=== PATIENT | female | born 1990 | race Caucasian/White ===

== ENCOUNTER 2017-08-24 07:34 | Emergency (ER) | payer MEDICAID ==
[2017-08-24 08:11] LABS: BASOPHILS 0.1 % (0-2); EOSINOPHILS 0.1 % (0-7); HEMATOCRIT 44.8 % (36.0-48.0); HEMOGLOBIN 15.4 g/dL (12-16); IMMATURE GRANULOCYTES 0.1 % (0-5); LYMPHOCYTES 13.4 % (15-50); MCH 28.8 pg (26.0-34.0); MCHC 34.4 g/dL (31.0-37.0); MCV 83.9 fL (80.0-100.0); MEAN PLATELET VOLUME 11.8 fL (7.4-10.4); NEUTROPHILS 82.3 % (40-80); PLATELET COUNT 274 10x3/uL (130-400); RBC 5.34 10x6/uL (4.00-5.40); RDW 13.8 % (11.5-14.5); WBC 7.8 10x3/uL (4.8-10.8)
[2017-08-24 08:14] LABS: AMORPHOUS SEDIMENT <1+ /lpf (NONE SEEN); APPEARANCE CLEAR (CLEAR); BACTERIA MODERATE /hpf (NONE SEEN); BILIRUBIN NEGATIVE (NEGATIVE); COLOR YELLOW (YELLOW); GLUCOSE NEGATIVE (NEGATIVE); KETONE SMALL mg/dL (NEGATIVE); MUCUS <1+ /lpf (NONE SEEN); NITRITE NEGATIVE (NEGATIVE); PROTEIN NEGATIVE (NEGATIVE); RED CELLS - URINE 0-5 /hpf (0-5); UROBILINOGEN NORMAL (NORMAL); WHITE CELLS - URINE 0-5 /hpf (0-5)
[2017-08-24 08:18] LABS: ALBUMIN 3.7 g/dL (3.4-5.0); ALKALINE PHOSPHATASE 79 U/L (46-116); ALT (SGPT) 25 U/L (10-68); BILIRUBIN - TOTAL 0.45 mg/dL (0.2-1.3); CALC OSMOLALITY 276 mosm/kg (275-300); CALCIUM 9.3 mg/dL (8.5-10.1); CARBON DIOXIDE 24.9 mmol/L (21.0-32.0); CHLORIDE - SERUM 102 mmol/L (98-107); CREATININE - SERUM 0.9 mg/dL (0.6-1.3); GLUCOSE 115 mg/dL (74-106); LIPASE 65 U/L (73-393); POTASSIUM - SERUM 3.9 mmol/L (3.5-5.1); PROTEIN - SERUM 7.7 g/dL (6.4-8.2); SODIUM 139 mmol/L (136-145); UREA NITROGEN 7 mg/dL (7-18); eGFR NON AFRICAN AMERICAN 81 mL/min (90-120)
[2017-08-24 08:21] LABS: HCG SERUM NEGATIVE (NEGATIVE)
[2017-08-30 21:38] VITALS: BMI 33.4
== END 2017-08-24 10:20 | disposition home or self-care (01) ==
LOC: EDBD 07:34 → D.ER 07:34
PROVIDERS: Emergency Medicine
DX: K31.84 Gastroparesis (principal); R11.10 Vomiting, unspecified; R10.9 Unspecified abdominal pain

== ENCOUNTER 2017-08-29 13:50 | Observation (INO) | payer MEDICAID ==
[~2017-08-29] VITALS: Ht 167.6 cm; Wt 94.1 kg
[2017-08-29 14:39] LABS: BASOPHILS 0.1 % (0-2); EOSINOPHILS 2.1 % (0-7); HEMATOCRIT 43.4 % (36.0-48.0); HEMOGLOBIN 15.5 g/dL (12-16); IMMATURE GRANULOCYTES 0.2 % (0-5); LYMPHOCYTES 15.6 % (15-50); MCH 29.4 pg (26.0-34.0); MCHC 35.7 g/dL (31.0-37.0); MCV 82.4 fL (80.0-100.0); MEAN PLATELET VOLUME 12.1 fL (7.4-10.4); MONOCYTES 6.8 % (2-11); NEUTROPHILS 75.2 % (40-80); PLATELET COUNT 245 10x3/uL (130-400); RBC 5.27 10x6/uL (4.00-5.40); RDW 13.7 % (11.5-14.5); WBC 13.4 10x3/uL (4.8-10.8)
[2017-08-29 14:56] LABS: HCG SERUM NEGATIVE (NEGATIVE)
[2017-08-29 14:57] LABS: APPEARANCE HAZY (CLEAR); BILIRUBIN NEGATIVE (NEGATIVE); COLOR DK YELLOW (YELLOW); GLUCOSE NEGATIVE (NEGATIVE); KETONE MODERATE mg/dL (NEGATIVE); NITRITE NEGATIVE (NEGATIVE); PROTEIN TRACE mg/dL (NEGATIVE); UROBILINOGEN NORMAL (NORMAL)
[2017-08-29 14:58] LABS: RED CELLS - URINE 0-5 /hpf (0-5); WHITE CELLS - URINE 0-5 /hpf (0-5)
[2017-08-29 14:59] LABS: BACTERIA MODERATE /hpf (NONE SEEN); MUCUS <1+ /lpf (NONE SEEN)
[2017-08-29 15:05] LABS: ALBUMIN 3.9 g/dL (3.4-5.0); ALKALINE PHOSPHATASE 74 U/L (46-116); ALT (SGPT) 32 U/L (10-68); BILIRUBIN - TOTAL 0.49 mg/dL (0.2-1.3); CALC OSMOLALITY 275 mosm/kg (275-300); CALCIUM 9.6 mg/dL (8.5-10.1); CARBON DIOXIDE 18.9 mmol/L (21.0-32.0); CHLORIDE - SERUM 103 mmol/L (98-107); GLUCOSE 118 mg/dL (74-106); POTASSIUM - SERUM 3.4 mmol/L (3.5-5.1); PROTEIN - SERUM 7.8 g/dL (6.4-8.2); SODIUM 139 mmol/L (136-145); UREA NITROGEN 5 mg/dL (7-18); eGFR NON AFRICAN AMERICAN 72 mL/min (90-120)
[2017-08-29 15:08] LABS: AMYLASE - SERUM 37 U/L (25-115); LIPASE 79 U/L (73-393); TROPONIN-I < 0.017 ng/mL (0.000-0.060)
[2017-08-30] MEDS ORDERED: ATIVAN1 MG PO (02:52)
[2017-08-30] MEDS ORDERED: CARAFATE1 G/10 ML PO (02:52)
[2017-08-30] MEDS ORDERED: BENTYL 20 MG TA20 MG PO (02:52)
[2017-08-30] MEDS ORDERED: PHENERGAN25 M1 PO (02:54)
[2017-08-30 03:52] VITALS: BP 131/72; BMI 32.3
[2017-08-30 04:00] VITALS: BP 123/80
[2017-08-30 04:39] LABS: BASOPHILS 0.1 % (0-2); EOSINOPHILS 1.2 % (0-7); HEMATOCRIT 41.9 % (36.0-48.0); HEMOGLOBIN 14.2 g/dL (12-16); IMMATURE GRANULOCYTES 0.1 % (0-5); LYMPHOCYTES 27.3 % (15-50); MCH 28.5 pg (26.0-34.0); MCHC 33.9 g/dL (31.0-37.0); MCV 84.1 fL (80.0-100.0); MEAN PLATELET VOLUME 11.9 fL (7.4-10.4); MONOCYTES 10.5 % (2-11); NEUTROPHILS 60.8 % (40-80); PLATELET COUNT 220 10x3/uL (130-400); RBC 4.98 10x6/uL (4.00-5.40); RDW 13.9 % (11.5-14.5)
[2017-08-30 04:41] LABS: WBC 8.3 10x3/uL (4.8-10.8)
[2017-08-30 05:09] LABS: ALBUMIN 3.3 g/dL (3.4-5.0); ALKALINE PHOSPHATASE 69 U/L (46-116); ALT (SGPT) 32 U/L (10-68); CHLORIDE - SERUM 107 mmol/L (98-107); CREATININE - SERUM 0.8 mg/dL (0.6-1.3); GLUCOSE 96 mg/dL (74-106); POTASSIUM - SERUM 3.8 mmol/L (3.5-5.1); PROTEIN - SERUM 6.8 g/dL (6.4-8.2); SODIUM 143 mmol/L (136-145); eGFR NON AFRICAN AMERICAN > 90 mL/min (90-120)
[2017-08-30 05:11] LABS: CALC OSMOLALITY 281 mosm/kg (275-300); CARBON DIOXIDE 27.1 mmol/L (21.0-32.0); UREA NITROGEN 3 mg/dL (7-18)
[2017-08-30 08:39] VITALS: BP 126/84
[2017-08-30 10:28] VITALS: BMI 33.4
[2017-08-30 12:17] VITALS: BP 126/79
[2017-08-30 16:32] VITALS: BP 118/74
[2017-08-30 18:05] LABS: UDS - AMPHET NEGATIVE QUAL (NEGATIVE); UDS - BARB NEGATIVE QUAL (NEGATIVE); UDS - BENZO NEGATIVE QUAL (NEGATIVE); UDS - COCAINE NEGATIVE QUAL (NEGATIVE); UDS - OPIATE NEGATIVE QUAL (NEGATIVE); UDS - PCP NEGATIVE QUAL (NEGATIVE); UDS - THC POSITIVE QUAL (NEGATIVE)
[2017-08-30 20:00] VITALS: BP 121/80
[2017-08-30 21:38] VITALS: Ht 167.6 cm; Wt 94.1 kg
[2017-08-31 01:00] VITALS: BP 97/55
[2017-08-31 05:09] VITALS: BP 115/64
[2017-08-31 08:29] VITALS: BP 138/75
[2017-08-31 11:54] VITALS: BP 115/63
[2017-08-31] MEDS ORDERED: PROTONIX40 MG PO (14:04)
== END 2017-08-31 15:20 | disposition home or self-care (01) ==
LOC: D.ER 13:50 → D.EDHOLD 19:03 → D.M2 19:03 → OBSVTIME 19:06 → D.M2 19:31
PROVIDERS: Family Medicine; Internal Medicine Gastroenterology; Nurse Practitioner Family
DX: K31.84 Gastroparesis (principal); K21.9 Gastro-esophageal reflux disease without esophagitis; G43.A0 Cyclical vomiting, in migraine, not intractable; F41.9 Anxiety disorder, unspecified; F12.90 Cannabis use, unspecified, uncomplicated; Z72.0 Tobacco use

== ENCOUNTER 2018-05-29 09:02 | Emergency (ER) | payer MEDICAID ==
[~2018-05-29] VITALS: Ht 167.6 cm; Wt 90.9 kg
[~2018-05-29 09:02] MED LIST: ATIVAN1 MG PO; BENTYL 20 MG TA20 MG PO; CARAFATE1 G/10 ML PO; PHENERGAN25 M1 PO; PROTONIX40 MG PO
[2018-05-29 09:19] VITALS: Ht 167.6 cm; Wt 90.9 kg
[2018-05-29 09:39] LABS: APPEARANCE CLOUDY (CLEAR); BILIRUBIN NEGATIVE (NEGATIVE); COLOR YELLOW (YELLOW); GLUCOSE NEGATIVE (NEGATIVE); KETONE NEGATIVE (NEGATIVE); NITRITE NEGATIVE (NEGATIVE); PROTEIN TRACE mg/dL (NEGATIVE); SPECIFIC GRAVITY 1.015 (1.005-1.020); UROBILINOGEN NORMAL (NORMAL)
[2018-05-29 09:48] LABS: BACTERIA MODERATE /hpf (NONE SEEN); MUCUS <1+ /lpf (NONE SEEN); RED CELLS - URINE OCC /hpf (0-5); WHITE CELLS - URINE 0-5 /hpf (0-5)
[2018-05-29 09:52] LABS: BASOPHILS 0.2 % (0-2); EOSINOPHILS 2.3 % (0-7); HEMATOCRIT 42.5 % (36.0-48.0); HEMOGLOBIN 14.5 g/dL (12-16); IMMATURE GRANULOCYTES 0.1 % (0-5); LYMPHOCYTES 15.3 % (15-50); MCH 29.1 pg (26.0-34.0); MCHC 34.1 g/dL (31.0-37.0); MCV 85.2 fL (80.0-100.0); MEAN PLATELET VOLUME 11.3 fL (7.4-10.4); NEUTROPHILS 76.1 % (40-80); PLATELET COUNT 219 10x3/uL (130-400); RBC 4.99 10x6/uL (4.00-5.40); RDW 13.5 % (11.5-14.5); WBC 10.7 10x3/uL (4.8-10.8)
[2018-05-29 09:59] LABS: HCG SERUM NEGATIVE (NEGATIVE)
[2018-05-29 10:10] LABS: ALBUMIN 3.5 g/dL (3.4-5.0); ANION GAP 12.4 mmol/L (8-16); BILIRUBIN - TOTAL 0.27 mg/dL (0.2-1.3); CALCIUM 8.6 mg/dL (8.5-10.1); CARBON DIOXIDE 25.1 mmol/L (21.0-32.0); POTASSIUM - SERUM 3.5 mmol/L (3.5-5.1)
[2018-05-29] MEDS ORDERED: PHENERGAN25 MG RC (10:26)
[2018-05-29] MEDS ORDERED: LOMOTIL 2.5-0.1 EAC1 PO (10:26)
[2018-05-29 13:24] VITALS: BP 122/79
== END 2018-05-29 12:50 | disposition home or self-care (01) ==
LOC: D.ER 09:02
PROVIDERS: Emergency Medicine
DX: R10.9 Unspecified abdominal pain (principal); R11.10 Vomiting, unspecified; R19.7 Diarrhea, unspecified; F17.200 Nicotine dependence, unspecified, uncomplicated

== ENCOUNTER 2019-08-11 15:56 | Emergency (ER) | payer MEDICAID ==
[~2019-08-11] VITALS: Ht 167.6 cm; Wt 90.9 kg
[~2019-08-11 15:56] MED LIST changes: +LOMOTIL 2.5-0.1 EAC1 PO; +PHENERGAN25 MG RC
[2019-08-11 16:09] VITALS: BP 136/74; Ht 167.6 cm; Wt 90.9 kg
[2019-08-11 17:18] LABS: BASOPHILS 0.1 % (0-2); HEMATOCRIT 45.1 % (36.0-48.0); HEMOGLOBIN 14.9 g/dL (12-16); IMMATURE GRANULOCYTES 0.2 % (0-5); LYMPHOCYTES 31.6 % (15-50); MCH 29.3 pg (26.0-34.0); MCV 88.6 fL (80.0-100.0); MEAN PLATELET VOLUME 11.8 fL (7.4-10.4); MONOCYTES 5.7 % (2-11); NEUTROPHILS 59.4 % (40-80); PLATELET COUNT 217 10x3/uL (130-400); RBC 5.09 10x6/uL (4.00-5.40); RDW 13.3 % (11.5-14.5); WBC 8.1 10x3/uL (4.8-10.8)
[2019-08-11 17:23] LABS: INR 1.01 (0.85-1.17); PROTIME 13.3 SECONDS (11.6-15.0)
[2019-08-11 17:26] LABS: CALC OSMOLALITY 276 mosm/kg (275-300); CALCIUM 8.9 mg/dL (8.5-10.1); CARBON DIOXIDE 26.3 mmol/L (21.0-32.0); CHLORIDE - SERUM 104 mmol/L (98-107); CREATININE - SERUM 0.7 mg/dL (0.6-1.3); GLUCOSE 97 mg/dL (74-106); POTASSIUM - SERUM 4.1 mmol/L (3.5-5.1); SODIUM 139 mmol/L (136-145); UREA NITROGEN 11 mg/dL (7-18); eGFR NON AFRICAN AMERICAN > 90 mL/min (90-120)
[2019-08-11 17:32] LABS: BILIRUBIN NEGATIVE (NEGATIVE); GLUCOSE NEGATIVE (NEGATIVE); KETONE NEGATIVE (NEGATIVE); NITRITE NEGATIVE (NEGATIVE); UROBILINOGEN NORMAL (NORMAL)
[2019-08-11 17:33] LABS: RED CELLS - URINE 0-5 /hpf (0-5); WHITE CELLS - URINE OCC /hpf (NEGATIVE)
[2019-08-11 17:43] LABS: ALBUMIN 3.7 g/dL (3.4-5.0); ALKALINE PHOSPHATASE 70 U/L (30-120); ALT (SGPT) 24 U/L (10-68); BILIRUBIN - TOTAL 0.29 mg/dL (0.2-1.3); CKMB 0.5 U/L (0.0-3.6); CREATINE KINASE 81 UL (21-215); PRO BNP 37 pg/mL (0-125); PROTEIN - SERUM 7.3 g/dL (6.4-8.2)
[2019-08-11 17:44] LABS: TROPONIN-I < 0.017 ng/mL (0.000-0.060)
[2019-08-11 17:57] LABS: APTT < 20.0 SECONDS (22.8-39.4)
== END 2019-08-11 19:50 | disposition home or self-care (01) ==
LOC: D.ER 15:56
PROVIDERS: Family Medicine
DX: R05 Cough (principal); R19.7 Diarrhea, unspecified; R06.00 Dyspnea, unspecified; K21.9 Gastro-esophageal reflux disease without esophagitis; R53.83 Other fatigue; R10.9 Unspecified abdominal pain

== ENCOUNTER 2020-07-26 18:31 | Emergency (ER) | payer MEDICAID ==
[~2020-07-26] VITALS: Ht 167.6 cm; Wt 81.8 kg
[~2020-07-26 18:31] MED LIST changes: +LEVSIN/ANASP0.125 MG PO; +PHENERGAN50 MG RC; +ZOFRAN ODT4 MG/UDTAB PO
[2020-07-26 18:43] VITALS: Ht 167.6 cm; Wt 81.8 kg
[2020-07-26 19:27] LABS: BASOPHILS 0.2 % (0-2); EOSINOPHILS 1.5 % (0-7); HEMATOCRIT 41.5 % (36.0-48.0); HEMOGLOBIN 14.2 g/dL (12-16); IMMATURE GRANULOCYTES 0.2 % (0-5); LYMPHOCYTE ABS# 2.47 10x3/uL (1.18-3.74); LYMPHOCYTES 19.8 % (15-50); MCH 29.2 pg (26.0-34.0); MCHC 34.2 g/dL (31.0-37.0); MCV 85.2 fL (80.0-100.0); MEAN PLATELET VOLUME 10.4 fL (7.4-10.4); MONOCYTES 5.4 % (2-11); NEUTROPHILS 72.9 % (40-80); RBC 4.87 10x6/uL (4.00-5.40); RDW 12.8 % (11.5-14.5); WBC 12.5 10x3/uL (4.8-10.8)
[2020-07-26 19:29] LABS: PLATELET COUNT 352 10x3/uL (130-400)
[2020-07-26 19:45] LABS: CALC OSMOLALITY 276 mosm/kg (275-300); CALCIUM 9.3 mg/dL (8.5-10.1); CARBON DIOXIDE 23.1 mmol/L (21.0-32.0); CHLORIDE - SERUM 102 mmol/L (98-107); CREATININE - SERUM 0.8 mg/dL (0.6-1.3); GLUCOSE 119 mg/dL (74-106); POTASSIUM - SERUM 3.8 mmol/L (3.5-5.1); SODIUM 139 mmol/L (136-145); UREA NITROGEN 6 mg/dL (7-18); eGFR NON AFRICAN AMERICAN > 90 mL/min (90-120)
[2020-07-26 19:51] LABS: ALKALINE PHOSPHATASE 56 U/L (30-120); ALT (SGPT) 21 U/L (10-68); AMYLASE - SERUM 43 U/L (25-115); BILIRUBIN - TOTAL 0.41 mg/dL (0.2-1.3); LIPASE 46 U/L (73-393); PROTEIN - SERUM 7.7 g/dL (6.4-8.2)
[2020-07-26 21:14] LABS: BILIRUBIN NEGATIVE (NEGATIVE); HCG URINE NEGATIVE (NEGATIVE); KETONE MODERATE mg/dL (NEGATIVE); NITRITE NEGATIVE (NEGATIVE); UROBILINOGEN NORMAL mg/dL (< 2)
[2020-07-26 21:43] LABS: UDS - AMPHET NEGATIVE QUAL (NEGATIVE); UDS - BARB NEGATIVE QUAL (NEGATIVE); UDS - BENZO NEGATIVE QUAL (NEGATIVE); UDS - COCAINE NEGATIVE QUAL (NEGATIVE); UDS - OPIATE POSITIVE QUAL (NEGATIVE); UDS - PCP NEGATIVE QUAL (NEGATIVE); UDS - THC POSITIVE QUAL (NEGATIVE)
[2020-07-26] MEDS ORDERED: BENTYL10 MG PO (21:59)
[2020-07-26] MEDS ORDERED: ZOFRAN ODT4 MG/UDTAB PO (21:59)
[2020-07-26 22:13] VITALS: BP 133/74
== END 2020-07-26 22:29 | disposition home or self-care (01) ==
LOC: D.ER 18:31
PROVIDERS: Emergency Medicine
DX: K31.84 Gastroparesis (principal); R10.9 Unspecified abdominal pain; R11.10 Vomiting, unspecified; D72.829 Elevated white blood cell count, unspecified; F12.10 Cannabis abuse, uncomplicated; R73.9 Hyperglycemia, unspecified; K21.9 Gastro-esophageal reflux disease without esophagitis